=== PATIENT | female | born 1960 | race Caucasian/White ===

== ENCOUNTER → 2017-07-15 | Outpatient (CLI) | payer BC | LOC: MC.RAD 13:43 | DX: Z12.31 Encounter for screening mammogram for malignant neoplasm of breast (principal) ==

== ENCOUNTER → 2018-08-30 | Outpatient (CLI) | payer BC | LOC: MC.RAD 10:49 | DX: Z12.31 Encounter for screening mammogram for malignant neoplasm of breast (principal) ==